=== PATIENT | female | born 1950 | race Caucasian/White ===

== ENCOUNTER 2016-03-21 10:09 | Outpatient (CLI) | payer BC, OTHER ==
--- NOTE | 2016-03-22 16:51 | Mammography Report ---
DIGITAL SCREENING MAMMOGRAM: 03/21/2016 CLINICAL INDICATION: A 65-year-old, for screening. COMPARISON: 11/2012, 08/2009, 01/2007. TECHNIQUE: Routine CC and MLO projections were obtained of the breasts. FINDINGS: Parenchymal tissue within both breasts is heterogeneously dense, which may lower the sensi tivity of mammography; however, there are no dominant masses, suspicious microcalcifications, or seco ndary signs of malignancy. In comparison to the previous studies, there are no significant changes. ASSESSMENT: NO MAMMOGRAPHIC EVIDENCE OF MALIGNANCY. NO SIGNIFICANT INTERVAL CHANGES. RECOMMENDATION: Screening mammography is recommended annually. BIRADS category 1 - negative. STANDARD QUALIFYING STATEMENTS 1. This examination was reviewed with the aid of Computed-Aided Detection (CAD). 2. A negative or benign imaging report should not delay biopsy if clinically suspicious findings are present. Consider surgical consultation if warranted. More than 5% of cancers are not identified by i maging. 3. Dense breasts may obscure an underlying neoplasm. JOB #: [id number] EXT JOB #:[id number]
== END 2016-03-21 10:10 | disposition home or self-care (01) ==
LOC: DI.S 10:09
PROVIDERS: ATTEND Physician Assistant
DX: Z12.31 Encounter for screening mammogram for malignant neoplasm of breast (principal)
CPT/HCPCS: 77067

== ENCOUNTER 2017-08-16 10:43 | Outpatient (CLI) | payer MEDICARE, OTHER ==
--- NOTE | 2017-08-16 11:50 | CT Report ---
Procedure Date: 08/16/2017 Accession Number: [id number] / [id number] Procedure: CT - Chest/Lung Screen Low Dose W/O CPT Code: FULL RESULT: EXAM: Chest/Lung Screen Low Dose W/O DATE: 08/16/2017 10:58 AM CLINICAL HISTORY: SCREENING FOR LUNG CANCER, SMOKER COMPARISON: None. TECHNIQUE: Routine helical CT imaging was performed through the chest. IV contrast: None. Reconstructions: Coronal and sagittal. In accordance with CT protocol optimization, one or more of the following dose reduction techniques were utilized for this exam: automated exposure control, adjustment of mA and/or KV based on patient size, or use of iterative reconstructive technique. FINDINGS: Lungs/Pleura: No nodules, bronchial thickening, consolidation, or edema. Pulmonary vasculature is normal. No pericardial or pleural effusion. No pneumothorax. Mediastinum: Normal. No adenopathy or masses. The heart and great vessels are normal. Bones: Unremarkable. Visualized Abdomen: Unremarkable. Other: None. IMPRESSION: Negative examination. Recommendation: Continue routine annual screening with low-dose CT in 12 months. Lung-RADS Category 1 negative RADIA
== END 2017-08-16 10:44 | disposition home or self-care (01) ==
LOC: DI 10:43
PROVIDERS: ATTEND Physician Assistant
DX: Z12.2 Encounter for screening for malignant neoplasm of respiratory organs (principal); F17.210 Nicotine dependence, cigarettes, uncomplicated

== ENCOUNTER 2017-08-16 10:46 | Outpatient (CLI) | payer MEDICARE, OTHER ==
--- NOTE | 2017-08-19 15:27 | Mammography Report ---
Procedure Date: 08/16/2017 Accession Number: [id number] / [id number] Procedure: MYRTLE - Screening Mammo Dig Bilat CPT Code: FULL RESULT: EXAM: Screening Mammo Dig Bilat DATE: 08/16/2017 11:14 AM CLINICAL HISTORY: 67-year-old with history of left benign biopsy for screening TECHNIQUE: Bilateral CC and MLO views were obtained. COMPARISON: 03/21/2016, 11/19/2012, 08/18/2009 FINDINGS: The breasts demonstrate scattered fibroglandular densities bilaterally. A sebaceous cyst is noted in the left lower inner anterior breast. No suspicious masses, clustered microcalcifications, or regions of architectural distortion are identified. IMPRESSION: Benign findings RECOMMENDATION: Routine annual screening unless otherwise clinically indicated. BIRADS CATEGORY 2: Benign findings STANDARD QUALIFYING STATEMENTS: 1. This examination was reviewed with the aid of Computer-Aided Detection (CAD). 2. A negative or benign imaging report should not delay biopsy if clinically suspicious findings are present. Consider surgical consultation if warrented. More than 5% of cancers are not identified by imaging. 3. Dense breasts may obscure an underlying neoplasm.
== END 2017-08-16 10:47 | disposition home or self-care (01) ==
LOC: DI 10:46
PROVIDERS: ATTEND Physician Assistant
DX: Z12.31 Encounter for screening mammogram for malignant neoplasm of breast (principal)
CPT/HCPCS: 77067

== ENCOUNTER 2017-08-26 07:28 | Outpatient (CLI) | payer MEDICARE, OTHER ==
--- NOTE | 2017-08-26 09:43 | Ultrasound Report ---
Procedure Date: 08/26/2017 Accession Number: [id number] / [id number] Procedure: US - Aorta Screening CPT Code: FULL RESULT: EXAM: Aorta Screening DATE: 08/26/2017 8:02 AM CLINICAL HISTORY: 67-year-old male current smoker with greater than 20 pack year history of smoking. COMPARISON: None. TECHNIQUE: Real-time sonographic imaging of retroperitoneal vascular structures, including color-flow, was performed by the milling/polishing operator. Multiple credit representative static images were saved for review. FINDINGS: Aorta: The abdominal aorta was adequately visualized. No evidence for abdominal aortic aneurysm. The upper abdominal aorta is patent by color Doppler and measures up to 2.4 by 2.45 cm proximally with the right common iliac artery also showing no sign of aneurysm, 1.1 x 0.9 cm and the left common iliac artery 1.1 x 1.1 cm. Iliac Vessels: The visualized proximal common iliac arteries are normal in caliber. Other: None. IMPRESSION: No abdominal aortic aneurysm. RADIA
--- NOTE | 2017-08-26 12:43 | DEXA Report ---
Procedure Date: 08/26/2017 Accession Number: [id number] / [id number] Procedure: DEX - Dexa Spine and/or Hip CPT Code: FULL RESULT: EXAM: Dexa Spine and/or Hip DATE: 08/26/2017 8:34 AM CLINICAL HISTORY: SCREENING FOR CAD/SMOKER/POST MENOPAUSAL TECHNIQUE: Dual energy x-ray absorptiometry (DXA) was performed on a [employer] System. Regions measured are the AP Spine, femoral neck, and if needed forearm. COMPARISON: None. In accordance with the International Society for Clinical Densitometry (ISCD) guidelines, data from previous exams may be reanalyzed using current recommendations and techniques. This is done to allow a more accurate basis for comparison with the current study. FINDINGS: The data for the lumbar spine is as follows: BMD (g/cm/cm) T-SCORE Z-SCORE REGION L1 0.892 -2.0 0.1 L2 1.059 -1.2 0.9 L3 1.170 -0.2 1.9 L4 1.052 -1.2 0.9 TOTAL 1.046 -1.1 1.0 NOTE: All evaluable vertebrae are used for classification The data for the hip is as follows: BMD (g/cm/cm) T-SCORE Z-SCORE REGION Neck 0.662 -2.7 -0.9 TOTAL 0.674 -2.7 -1.1 NOTE: The femoral neck or total proximal femur, whichever is lowest, is used for classification. IMPRESSION: THE WHO CLASSIFICATION BASED ON THE INTERNATIONAL REFERENCE STANDARD IS OSTEOPOROSIS. THE FRACTURE RISK IS HIGH. RECOMMENDATION: Patients with diagnosis of osteoporosis or osteopenia should have regular bone mineral density assessment. For those eligible for Medicare, routine testing is allowed once every 2 years. Testing frequency can be increased for patients who have rapidly progressing disease or for those who are receiving medical therapy to restore bone mass. COMMENT: World Health Organization (WHO) definitions for osteoporosis and osteopenia: NORMAL BMD: T-score at -1.0 or higher, fracture risk is low OSTEOPENIA BMD: T-score between -1.0 and -2.5, fracture risk is increased. OSTEOPOROSIS BMD: T-score at -2.5 or lower, fracture risk is high. National Osteoporosis Foundation recommends: 1. Obtain adequate dietary calcium (at least 1200 mg per day) and vitamin D (400-800 international units per day). 2. Participate, as appropriate, in regular weightbearing and muscle-strengthening exercise. 3. Avoid tobacco use and reduce alcohol and caffeine intake. 4. For more detailed information see the website at www.NOF.org.
== END 2017-08-26 07:29 | disposition home or self-care (01) ==
LOC: DI 07:28
PROVIDERS: ATTEND Physician Assistant
DX: M81.0 Age-related osteoporosis without current pathological fracture (principal); F17.200 Nicotine dependence, unspecified, uncomplicated; Z78.0 Asymptomatic menopausal state; Z13.6 Encounter for screening for cardiovascular disorders
CPT/HCPCS: 76706; 77080; 93005

== ENCOUNTER 2018-07-31 06:16 | Day surgery (SDC) | payer MEDICARE, OTHER ==
[2018-07-31] MEDS ORDERED: LACTATED RINGERS 1,000 ML IV ONE ×2 (06:52→08:18)
[2018-07-31] MEDS ORDERED: fentaNYL 250 MCG/5 ML VIAL IVP ONE (07:39)
[2018-07-31] MEDS ORDERED: ONDANSETRON 4 MG/2 ML VIAL IVP ONE (07:39)
[2018-07-31] MEDS ORDERED: MIDAZOLAM 2 MG/2 ML VIAL IVP ONE (07:39)
[2018-07-31 08:47] VITALS: BP 100/62
== END 2018-07-31 06:17 | disposition home or self-care (01) ==
LOC: SDS 06:16
PROVIDERS: ATTEND Surgery
PROC: 0DJD8ZZ Inspection of Lower Intestinal Tract, Via Natural or Artificial Opening Endoscopic (ICD-10-PCS; principal; 2018-07-31 07:30)
DX: Z12.11 Encounter for screening for malignant neoplasm of colon (principal); K57.30 Diverticulosis of large intestine without perforation or abscess without bleeding; F17.210 Nicotine dependence, cigarettes, uncomplicated; K64.8 Other hemorrhoids; Z85.828 Personal history of other malignant neoplasm of skin
CPT/HCPCS: G0121; J3010; J7120

== ENCOUNTER 2021-05-08 08:21 | Outpatient (CLI) | payer MEDICARE, OTHER ==
--- NOTE | 2021-05-08 10:44 | CT Report ---
PROCEDURE: Low Dose Lung Cancer Screen INDICATIONS: SMOKER TECHNIQUE: Noncontrast low-dose images were acquired from the pulmonary apices to the posterior costophrenic ang les. Multiplanar MIP reformats were then acquired. For radiation dose reduction, the following was used: automated exposure control, adjustment of mA and/or kV according to patient size. COMPARISON: Lung cancer screening CT 08/16/2017. FINDINGS: Image quality: Excellent. Lungs and pleura: Mild emphysematous change. No significant pulmonary nodules. No mass. There is a s mall mucous plug in the right lower lobe, (). Normal dependent atelectasis at the lung bases. Th e central airways are clear. No pleural effusion. No pneumothorax. Mediastinum: Heart size is normal. No pericardial effusion. No mediastinal adenopathy by size crit eria. Thoracic aorta and central pulmonary arteries are normal in size. Esophagus is normal in [place] dia. No hiatal hernia. Bones and chest wall: No suspicious bony lesions. No vertebral body compression fractures. No axil leroy or supraclavicular adenopathy by size criteria. The thyroid is normal in size and there are no incidental findings. Abdomen: Visualized upper abdomen solid organs and bowel loops appear normal in the absence of contr ast. IMPRESSION: No significant pulmonary nodules. Recommend follow-up lung cancer screening chest CT in 12 months. Reviewed by: Bj Quintana MD on 05/08/2021 10:43 AM PDT Approved by: Bj Quintana MD on 05/08/2021 10:43 AM PDT Station ID: [id number]
== END 2021-05-08 08:22 | disposition home or self-care (01) ==
LOC: DI 08:21
PROVIDERS: ATTEND Nurse Practitioner Family
DX: Z12.2 Encounter for screening for malignant neoplasm of respiratory organs (principal); F17.210 Nicotine dependence, cigarettes, uncomplicated; M81.0 Age-related osteoporosis without current pathological fracture

== ENCOUNTER 2021-05-08 08:24 | Outpatient (CLI) | payer MEDICARE, OTHER ==
--- NOTE | 2021-05-08 11:39 | DEXA Report ---
PROCEDURE: Dexa Spine and/or Hip INDICATIONS: OSTEOPOROSIS TECHNIQUE: Dual energy x-ray absorptiometry (DXA) was performed on a [employer] System. Regions measur ed are the AP Spine, femoral neck, and if needed forearm. COMPARISON: 08/26/2017 FINDINGS: Lumbar Spine: Bone Mineral Density 1.014 g/cm/cm,T score -1.4, osteopenia Left Hip: Bone Mineral Density 0.637 g/cm/cm,T score -2.9, osteoporosis Left Femoral Neck: Bone Mineral Density 0.620 g/cm/cm, T score -3.0, osteoporosis (T score greater or equal to -1.0: NORMAL) (T score from -1.1 to -2.4: OSTEOPENIA) (T score less than or equal to -2.5 to: OSTEOPOROSIS) Impression: Osteoporosis. Bone mineral density is decreased 5.5% in the interval since prior exam obtained 018. Patients with diagnosis of osteoporosis or osteopenia should have regular bone mineral density assess ment. For those eligible for Medicare, routine testing is allowed once every 2 years. Testing frequ ency can be increased for patients who have rapidly progressing disease or for those who are receivin g medical therapy to restore bone mass. Reviewed by: Laine Saini MD, PhD on 05/08/2021 11:37 AM PDT Approved by: Laine Saini MD, PhD on 05/08/2021 11:37 AM PDT Station ID: [id number]
== END 2021-05-08 08:25 | disposition home or self-care (01) ==
LOC: DI 08:24
PROVIDERS: ATTEND Nurse Practitioner Family
DX: M81.0 Age-related osteoporosis without current pathological fracture (principal)

== ENCOUNTER 2021-05-30 08:51 | Outpatient (CLI) | payer MEDICARE, OTHER ==
--- NOTE | 2021-05-30 15:42 | Mammography Report ---
BILATERAL DIGITAL SCREENING MAMMOGRAM 3D/2D WITH EXAGGERATED CC: 05/30/2021 CLINICAL: Routine screening. Comparison is made to exams dated: 08/16/2017 mammogram and 03/21/2016 mammogram - [facility]. The tissue of both breasts is heterogeneously dense. This may lower the sensitivity of mamm ography. No significant masses, calcifications, or other findings are seen in either breast. There has been no significant interval change. IMPRESSION: NEGATIVE There is no mammographic evidence of malignancy. A 1 year screening mammogram is recommended. This exam was interpreted at Station ID: [id number]. NOTE: For mammograms, a report in lay terms will be sent to the patient. Approximately 15% of breast malignancies will not be visualized mammographically. In the management of a palpable breast mass, a negative mammogram must not discourage biopsy of a clinically suspicious lesion. Electronically Signed By: Piedad ponce/lexusrad:05/30/2021 09:52:53 ACR BI-RADS Category 1: Negative 3341F PARENCHYMAL PATTERN: (D) - The breast(s) demonstrate(s) heterogeneously dense fibroglandular sera mccauley. BI-RADS CATEGORY: (1) - 1 RECOMMENDATION: (ANNUAL) - Recommend routine annual screening mammography. [id number] 1 year screening LATERALITY: (B)
== END 2021-05-30 08:52 | disposition home or self-care (01) ==
LOC: DI.S 08:51
PROVIDERS: ATTEND Nurse Practitioner Family
DX: Z12.31 Encounter for screening mammogram for malignant neoplasm of breast (principal)

== ENCOUNTER 2022-11-20 10:45 | Outpatient (CLI) | payer MEDICARE, OTHER ==
--- NOTE | 2022-11-20 14:27 | DEXA Report ---
PROCEDURE: Dexa Spine and/or Hip INDICATIONS: OSTEOPOROSIS, SCREENING FOR AAA, HX SMOKING TECHNIQUE: Dual energy x-ray absorptiometry (DXA) was performed on a [employer] System. Regions measur ed are the AP Spine, femoral neck, and if needed forearm. COMPARISON: None FINDINGS: Lumbar Spine: Bone Mineral Density 1.066 g/cm/cm,T score -0.9. Normal Left Femoral Neck: Bone Mineral Density 0.608 g/cm/cm, T score -3.1. Osteoporosis. Left Hip: Bone Mineral Density 0.633 g/cm/cm,T score -3.0. Osteoporosis. (T score greater or equal to -1.0: NORMAL) (T score from -1.1 to -2.4: OSTEOPENIA) (T score less than or equal to -2.5 to: OSTEOPOROSIS) Impression: By WHO criteria, this patient has osteoporosis. Patients with diagnosis of osteoporosis or osteopenia should have regular bone mineral density assess ment. For those eligible for Medicare, routine testing is allowed once every 2 years. Testing frequ ency can be increased for patients who have rapidly progressing disease or for those who are receivin g medical therapy to restore bone mass. Reviewed by: Carlos Lamas MD on 11/20/2022 2:26 PM PDT Approved by: Carlos Lamas MD on 11/20/2022 2:26 PM PDT Station ID: [id number]
== END 2022-11-20 10:46 | disposition home or self-care (01) ==
LOC: MERGE 10:45 → DI 10:45
PROVIDERS: ATTEND Nurse Practitioner Family
DX: M81.0 Age-related osteoporosis without current pathological fracture (principal)

== ENCOUNTER 2022-11-20 10:47 | Outpatient (CLI) | payer MEDICARE, OTHER ==
--- NOTE | 2022-11-21 10:43 | Mammography Report ---
BILATERAL DIGITAL SCREENING MAMMOGRAM 3D/2D: 11/20/2022 CLINICAL: Routine screening. Comparison is made to exams dated: 05/30/2021 mammogram, 08/16/2017 mammogram, 03/21/2016 mammogram, and 11/19/2012 mammogram - [facility]. There are scattered areas of fibroglandular density in both breasts (category b / 25%-50% glandular t issue). No significant masses, calcifications, or other findings are seen in either breast. IMPRESSION: NEGATIVE There is no mammographic evidence of malignancy. A 1 year screening mammogram is recommended. Based on the Tyrer Cuzick model (a risk assessment model) the patients lifetime risk is 5.1% and her 10 year risk is 3.2%. According to the ACR, ACS, and NCCN guidelines, an annual breast MRI exam kadeem g with mammogram is recommended if the patients lifetime risk is 20% or greater. This exam was interpreted at Station ID: [id number]. NOTE: For mammograms, a report in lay terms will be sent to the patient. Approximately 15% of breast malignancies will not be visualized mammographically. In the management of a palpable breast mass, a negative mammogram must not discourage biopsy of a clinically suspicious lesion. Electronically Signed By: Lilia gusman/nadya:11/20/2022 17:48:10 letter sent: No_Letter ACR BI-RADS Category 1: Negative 3341F PARENCHYMAL PATTERN: (A) - The breast(s) demonstrate(s) scattered fibroglandular densities. BI-RADS CATEGORY: (1) - 1 Mammogram [id number] 1 year screening LATERALITY: (B)
== END 2022-11-20 10:48 | disposition home or self-care (01) ==
LOC: DI 10:47 → MERGE 10:47 → DI 10:48
PROVIDERS: ATTEND Nurse Practitioner Family
DX: Z12.31 Encounter for screening mammogram for malignant neoplasm of breast (principal); R92.323 Mammographic fibroglandular density, bilateral breasts